=== PATIENT | female | born 2000 | race Caucasian/White ===

== ENCOUNTER 2019-06-05 08:21 | Emergency (ER) | payer SELFPAY ==
[2019-06-05 08:22] VITALS: BP 150/74; PULSE 123; RESP 18; TEMP 36.6; O2SAT 96; BMI 37.8
--- NOTE | 2019-06-05 08:44 | ED.DCSUM_ITS ---
History of Present Illness Chief Complaint: GI Bleed Narrative: Evaluation secondary to abdominal pain diarrhea and blood in stool. Patient reports that she has been taking ibuprofen over the course of about the last 1- 1/2 to 2 weeks secondary to an ingrown toe. Patient states that at about 3 AM she had a sudden onset of crampy abdominal pain. This is diffuse and nonlocalizing and does not have any sort of exacerbating relieving factors. Patient reports that she then developed profuse diarrhea. She states that she had multiple episodes where there was a moderate amount of blood. Patient states that she now has frequent feeling that she needs to go, but feels as if she is unable to completely empty. She denies any nausea or vomiting. She denies any history of abdominal surgeries in the past. She denies any night sweats or unintended weight loss. No prior history of this. No sick contacts, recent travel, recent surgery, or antibiotic exposures. Review of systems otherwise negative. Past Medical History - Allergies and Home Meds Allergies/Adverse Reactions: Allergies No Known Allergies Allergy (Verified 06/05/19 08:24) Primary Care Physician: Tatiana Doctor,Out of [NON-STAFF] - 3-5 Days if not improving Past Medical History: - - Depression and anxiety Smoking Status: Never smoker Review of Systems All systems negative except as indicated General: Reports: Malaise Eyes: Denies: Visual changes - bilaterally, Diplopia ENT: Denies: Rhinorrhea, Sore throat Cardiovascular: Denies: Chest pain, Palpitations Respiratory: Denies: Dyspnea, Cough, Dyspnea on exertion Gastrointestinal: Reports: Abdominal pain, Diarrhea Genitourinary: Denies: Dysuria, Hematuria, Frequency Musculoskeletal: Denies: Back pain, Extremity Pain Skin: Denies: Rash, Wounds Neurological: Denies: Headache, Weakness, Numbness Psych: Reports: Anxiety Endocrine: Denies: Polyuria Hematologic: Denies: Easy bruising Allergy: Denies: Swelling of the mouth Physical Exam Vital Signs/Narrative: Vital Signs Temp Pulse Resp BP Pulse Ox 06/05/19 08:22 98 F 123 H 18 150/74 H 96 Inital Vital Signs reviewed: Yes General: Well nourished, Well developed, No Acute Distress Head: Normocephalic, Atraumatic Eyes: Perrl, EOMI ENT: Moist mucous membranes, No rhinorrhea Neck: Supple, Nontender Cardiovascular: Tachycardia Respiratory: No distress, CTA bilaterally, Chest nontender Abdomen: Tender - He is nonlocalizing with no guarding or rebound tenderness, no rigidity Back: Nontender, Normal Inspection Extremities: Nontender, No edema Skin: Normal color, No rash Neurological: Alert, Oriented x3, Cranial nerves II-XII grossly intact, Normal Strength, Normal Sensation Psychological: - - Mildly anxious Diagnostic/Tx/Re-eval - Medical Decision Making Patient presented with abdominal pain nausea vomiting diarrhea. Patient was somewhat tachycardic upon arrival so work-up was obtained. CBC demonstrates leukocytosis of 13, chemistry was unremarkable. Patient was given Bentyl Zofran and fluids and had improvement of her heart rate as well as symptomatic improvement. Patient was complaining that she was having some blood in her stool, she is not at risk for significant GI hemorrhage and she has normalized vital signs and is stable hemoglobin. I do not believe that she requires further work-up at this time. She was recommended conservative management. Patient was discharged in stable condition. Disposition: Home ED Disposition - Plan for ED Patient: Disposition: Home or Assisted Living Diagnosis: Gastroenteritis Instructions: GASTROENTERITIS, Viral (4y-Adult) Prescriptions: Dicyclomine HCl [Bentyl] 20 mg PO TIDAC #20 cap Prescription Printed Ondansetron [Zofran Odt] 4 mg PO Q8H PRN PRN #10 tab PRN Reason: Nausea Prescription Printed Referrals: [facility] Doctor,Out of [NON-STAFF] - 3-5 Days if not improving
[2019-06-05 09:19] LABS: Absolute Lymphocyte Count 1.34 X10^3/uL (0.83-4.51); Absolute Neutrophil Count 12.1 X10^3/uL (2.0-7.7); Basophil# 0.04 X10^3/uL; Basophil% 0.3 % (0-1); Eosinophil# 0.02 X10^3/uL; Eosinophils% 0.1 % (0-5); Hematocrit 46.7 % (37-47); Lymphocyte # 1.34 X10^3/ul (4.0); Lymphocyte % 9.6 % (19-41); Mean Corp Hgb Conc 34.3 g/dL (32-36); Mean Corpuscular Hgb 29.5 pg (27.0-32.0); Mean Corpuscular Volume 86.2 fL (81-99); Mean Platelet Vol. 9.4 fl (6.2-12.0); Monocyte# 0.39 X10^3/uL; Monocyte% 2.8 % (0-10); NRBC Flagged by Analyzer 0 % (0-5); Neutrophil # 12.08 X10^3/uL (2.7-7.7); Neutrophil % 86.8 % (47-70); Platelet Count 236 K/mm3 (150-450); RBC Distribution Width CV 11.9 % (11.6-14.6); RBC Distribution Width SD 37.2 fl (35.1-43.9); Red Blood Count 5.42 M/mm3 (4.2-5.4); White Blood Count 13.9 K/mm3 (4.4-11.0)
[2019-06-05 09:26] LABS: Anion Gap 9 (5-15); BUN 15 mg/dL (7-18); BUN/Creat Ratio 18.4 RATIO (10-20); Calcium,Total 9.3 mg/dL (8.5-10.1); Chloride 107 mmol/L (98-107); Creatinine, Serum 0.82 mg/dL (0.55-1.02); EST Glomerular Filtration Rate 94 mL/min (>60); Est Glom Filt Rate - Afr Amer 114 mL/min (>60); Estimated Creatinine Clearance 93.71 ml/min; Glucose 101 mg/dL (74-106); Potassium 3.9 mmol/L (3.5-5.1); Sodium Level 140 mmol/L (136-145)
[2019-06-05] MEDS: 0.9% Normal Saline 1,000 ML 1000 ML IV (09:31)
[2019-06-05] MEDS: Dicyclomine 10 MG Capsule 20 MG PO (09:32)
[2019-06-05 10:24] VITALS: BP 121/77; PULSE 69; RESP 17; O2SAT 98
== END 2019-06-05 10:27 | disposition home or self-care (01) ==
PROVIDERS: Emergency Provider Emergency Medicine
DX: K52.9 Noninfective gastroenteritis and colitis, unspecified (principal); F32.9 Major depressive disorder, single episode, unspecified; F41.9 Anxiety disorder, unspecified; Z79.899 Other long term (current) drug therapy
CPT/HCPCS: 80048; 85025; 96360; 99285; J7030; A4216